=== PATIENT | female | born 1990 | race Caucasian/White ===

== ENCOUNTER 2024-01-02 14:13 | Outpatient (CLI) | payer OTHER ==
[~2024-01-02 14:13] MED LIST: OBSTETRIX ONE1 EAC1 PO; ONDANSETRON HCL4 MG PO; PEPCID AC20 MG PO
== END 2024-01-02 15:25 | disposition home or self-care (01) ==
LOC: NST 14:13
PROVIDERS: ATTEND Obstetrics & Gynecology Maternal & Fetal Medicine
DX: Z34.83 Encounter for supervision of other normal pregnancy, third trimester (principal)

== ENCOUNTER 2024-01-10 00:47 | Inpatient (IN) | payer OTHER ==
[~2024-01-10] VITALS: Ht 160 cm; Wt 71.2 kg
[2024-01-10] MEDS ORDERED: MORPHINE SULFATE 4 MG/ML CARTRIDGE IV PRN (01:00)
[2024-01-10] MEDS ORDERED: RINGERS SOLUTION,LACTATED 1,000 ML IV SCH (01:00)
[2024-01-10] MEDS ORDERED: VALTREX1000 MG PO (01:47)
[2024-01-10 02:12] LABS: HEMATOCRIT 35.1 % (36.0-45.00); HEMOGLOBIN 11.9 g/dL (12.0-15.00); MEAN CORPUSCULAR HEMOGLOBIN 27.2 pg (27.00-32.0); PLATELET COUNT 173 K/uL (150-450); RED BLOOD COUNT 4.38 M/uL (4.00-6.00); RED CELL DISTRIBUTION WIDTH 14.4 % (11.5-14.5)
[2024-01-10 02:26] LABS: INR 0.97; PARTIAL THROMBOPLASTIN TIME 28.5 SECONDS (22.0-34.0); PROTHROMBIN TIME 10.2 SECONDS (9.0-11.5)
[2024-01-10] MEDS ORDERED: ERYTHROMYCIN BASE 1 GM TUBE OP ONE ×2 (03:48→04:00)
[2024-01-10] MEDS ORDERED: OXYTOCIN 20 UNITS/1000ML RL PIGGYBAG IV ONE (03:49)
[2024-01-10] MEDS ORDERED: CHLORHEXIDINE GLUCONATE 120 ML BOTTLE TOP ONE ×2 (03:49→05:15)
[2024-01-10] MEDS ORDERED: LIDOCAINE HCL 1% 10ML VIAL ONE (03:49)
[2024-01-10] MEDS ORDERED: LIDOCAINE HCL 1% 10ML VIAL IJ ONE (04:00)
[2024-01-10] MEDS ORDERED: OxyCODONE HCL/APAP UD (PERCOCET) PO PRN (04:30)
[2024-01-10] MEDS ORDERED: OXYTOCIN 1,000 ML IV SCH (04:30)
[2024-01-10] MEDS ORDERED: IBUprofen 400 MG TABLET PO PRN (04:30)
== END 2024-01-12 11:34 | disposition home or self-care (01) | DRG 807 ==
LOC: LDR 00:47 → OB/GYN 00:47
PROVIDERS: ADMIT Obstetrics & Gynecology; ATTEND Obstetrics & Gynecology
PROC: 10E0XZZ Delivery of Products of Conception, External Approach (ICD-10-PCS; principal; 2024-01-10)
PROC: 0UQG7ZZ Repair Vagina, Via Natural or Artificial Opening (ICD-10-PCS; 2024-01-10)
PROC: 4A1HXCZ Monitoring of Products of Conception, Cardiac Rate, External Approach (ICD-10-PCS; 2024-01-10)
DX: O71.4 Obstetric high vaginal laceration alone (principal); Z37.0 Single live birth; Z3A.38 38 weeks gestation of pregnancy; Z20.822 Contact with and (suspected) exposure to COVID-19